=== PATIENT | female | born 1940 | race Asian ===

== ENCOUNTER 2023-05-02 11:06 | Emergency (ER) | payer OTHER ==
[~2023-05-02] VITALS: Ht 152.4 cm; Wt 54.5 kg
[2023-05-02 11:54] VITALS: BP 159/82; PULSE 83; RESP 16; TEMP 97.8; O2SAT 96
== END 2023-05-02 12:06 | disposition home or self-care (01) ==
LOC: ER 11:06
DX: H11.32 Conjunctival hemorrhage, left eye (principal); I10 Essential (primary) hypertension

== ENCOUNTER → 2023-06-18 | Outpatient (CLI) | payer OTHER | END | disposition home or self-care (01) | LOC: XYW 08:42 | PROVIDERS: ATTEND Nurse Practitioner Family | DX: I35.1 Nonrheumatic aortic (valve) insufficiency (principal); R07.89 Other chest pain; R42 Dizziness and giddiness; I51.7 Cardiomegaly | CPT/HCPCS: 93306 ==

== ENCOUNTER → 2023-09-13 | Outpatient (CLI) | payer OTHER | END | disposition home or self-care (01) | LOC: LAB 13:55 | PROVIDERS: ATTEND Nurse Practitioner Family | DX: Z12.11 Encounter for screening for malignant neoplasm of colon (principal); K92.1 Melena | CPT/HCPCS: 82270 ==

== ENCOUNTER → 2023-11-11 | Outpatient (CLI) | payer OTHER ==
[2023-11-11 09:11] LABS: Ferritin 167.7 ng/mL (10-291)
[2023-11-11 09:20] LABS: Free T4 (Free Thyroxine) 0.89 ng/dL (0.89-1.76)
[2023-11-11 10:26] LABS: Folate (Folic Acid) 17.14 ng/mL (>5.38)
[2023-11-11 11:49] LABS: % Iron Saturation 32.7 % (15-50)
[2023-11-13 07:07] LABS: Albumin 3.3 g/dL (2.9-4.4); Alpha-1-Globulin 0.3 g/dL (0.0-0.4); Gamma Globulin 1.6 g/dL (0.4-1.8); Globulin Total 3.9 g/dL (2.2-3.9); Protein Total Serum 7.2 g/dL (6.0-8.5)
== END | disposition home or self-care (01) ==
LOC: LAB 07:26
PROVIDERS: ATTEND Psychiatry & Neurology Neurology
DX: E61.1 Iron deficiency (principal); G62.2 Polyneuropathy due to other toxic agents
CPT/HCPCS: 36415; 82607; 82728; 82746; 82951; 83540; 83550; 84155; 84165; 84439; 84443

== ENCOUNTER 2023-12-04 07:08 | Day surgery (SDC) | payer OTHER ==
[2023-11-29 10:10] LABS: Basophils # (auto) 0 10 ^3/uL (0-0.2); Basophils % (auto) 0.6 % (0.0-2.0); Eosinophils # (auto) 0.1 10 ^3/uL (0-0.8); Eosinophils % (auto) 1.6 % (0.0-7.0); Hematocrit 46.4 % (36.0-46.0); Lymphocytes # (auto) 2.8 10 ^3/uL (0.4-5.4); Mean Corpuscular Hemoglobin 32.2 pg (28.0-32.0); Mean Corpuscular Hgb Conc. 34.5 g/dL (32.0-36.0); Mean Corpuscular Volume 93.2 fL (80.0-100.0); Monocytes # (auto) 0.6 10 ^3/uL (0-1.3); Monocytes % (auto) 9.8 % (0.0-12.0); Neutrophils # (auto) 2.7 10 ^3/uL (1.6-8.6); Nucleated Red Blood Cells % 0.1 %; Red Blood Cells 4.98 10^6/uL (4.0-5.20); Red Cell Distribution Width 12.8 % (11.8-14.3); White Blood Cell 6.2 10^3/uL (4.4-10.8)
[2023-11-29 10:25] LABS: INR 0.98 (0.9-1.15); Partial Thromboplastin Time 26.2 SEC (24.5-34.5); Prothrombin Time 10.4 sec (9.3-11.8)
[2023-11-29 10:49] LABS: Chloride 99 mmol/L (98-107); Potassium 3.3 mmol/L (3.5-5.1); Sodium 137 mmol/L (136-145)
[2023-11-29 10:50] LABS: Anion Gap 6 (5-15); Calcium 10.6 mg/dL (8.7-10.4); Carbon Dioxide 32 mmol/L (20-30)
[2023-11-29 10:52] LABS: Alkaline Phosphatase 56 U/L (46-116)
[2023-11-29 10:55] LABS: Blood Urea Nitrogen 9 mg/dL (9-23); Glucose 109 mg/dL (74-106)
[2023-11-29 10:57] LABS: Albumin 4.6 g/dL (3.2-4.8); Aspartate Aminotransferase 35 U/L (13-40); Bilirubin, Total 0.6 mg/dL (0.2-1.0); Total Protein 7.8 g/dL (5.7-8.2)
[2023-11-29 11:06] LABS: Alanine Aminotransferase 43 U/L (7-40)
[~2023-12-04] VITALS: Ht 152.4 cm; Wt 50.8 kg
[~2023-12-04 07:08] MED LIST: HYDR25TA5 PO; PRAM0.373 PO; RISE150T PO; ROSU20TA14 PO
[2023-12-04] MEDS ORDERED: diphenhdrAMINE HCL 50 MG/1 ML VL ONE (07:54)
[2023-12-04] MEDS ORDERED: SODIUM CHLORIDE LOCK 10 ML ONE (07:54)
[2023-12-04] MEDS ORDERED: FLUMAZENIL 0.1 MG/ML INJ 10ML MDV IV ONE (07:59)
[2023-12-04] MEDS ORDERED: NALOXONE HCL 0.4 MG/ML VIAL ONE (07:59)
[2023-12-04] MEDS ORDERED: SIMETHICONE 40 MG/0.6 ML ORAL DROP ONE (08:28)
[2023-12-04 08:33] VITALS: PULSE 76; RESP 14; O2SAT 99
[2023-12-04] MEDS: LIDOCAINE VISCOUS 2% 15ML UD ONE (08:35)
[2023-12-04] MEDS: fentaNYL CITRATE 100 MCG/2 ML VL ONE (08:37)
[2023-12-04] MEDS: MIDAZOLAM HCL 5 MG/ML-1ML VIAL ONE (08:37)
[2023-12-04 09:06] VITALS: PULSE 68; RESP 15; TEMP 98.2; O2SAT 95
[2023-12-04 09:30] VITALS: BP 118/66; PULSE 74; RESP 19; O2SAT 96
== END 2023-12-04 09:05 | disposition home or self-care (01) ==
LOC: GI 07:08
PROVIDERS: ATTEND Internal Medicine Gastroenterology
DX: R10.9 Unspecified abdominal pain (principal); K29.50 Unspecified chronic gastritis without bleeding; K44.9 Diaphragmatic hernia without obstruction or gangrene; K20.90 Esophagitis, unspecified without bleeding; F17.210 Nicotine dependence, cigarettes, uncomplicated; Z98.890 Other specified postprocedural states
CPT/HCPCS: 36415; 43239; 80053; 85025; 85610; 85730; 88305; 88312; 88342; J2250; J3010; J7030; 99152; 99153

== ENCOUNTER 2024-05-02 17:43 | Inpatient (IN) | payer OTHER ==
[~2024-05-02] VITALS: Ht 152.4 cm; Wt 59.9 kg
--- NOTE | 2024-05-02 19:22 | DVH ---
INDICATION: Trauma/fall COMPARISON: None TECHNIQUE: CT of the right was performed without contrast. Volume transverse images were obtained a nd reconstructed in multiple planes using bone and soft tissue algorithms. CONTRAST: None Radiation Dose Information: CT Dose: CTDI volume is 7.77 mGy. Dose-length product is 376.55 mGy*cm FINDINGS: The joint spaces are normal. Displaced fracture of the femoral neck. The soft tissues are normal. IMPRESSION: Displaced fracture of the femoral neck. Fracture is not subcapital or intertrochanteric but located i n the mid femoral neck. HS:Y
[2024-05-02 19:24] VITALS: PULSE 88; RESP 19; O2SAT 91
--- NOTE | 2024-05-02 19:51 | ED.PDOC ---
Musculoskeletal HPI Comments This patient is a pleasant 83-year-old female who arrives to the ED today with her due to complaints of severe left hip pain status post ground level fall earlier today. Patient was in her house when she slipped on a rug and landed on the tile floor. Patient describes the pain as severe. Patient is unable to move of the leg. No inversion of the leg appreciated as the patient was in a wheelchair at time of evaluation. No blood loss. Patient is not sure if she struck her head. No signs of cranial trauma. Chief Complaint: Fall Injury Time Seen by MD: 17:49 Primary Care Provider: DONTE MOURA Reviewed Notes: Nurses Notes Allergies: Coded Allergies: NO KNOWN ALLERGIES (Unverified , 07/29/23) Home Meds Reported Medications Risedronate Sodium (Actonel) 150 Mg Tab, 150 MG PO qmonthly, TAB 12/02/23 Hctz (Hydrochlorothiazide) 25 Mg Tab, 25 MG PO DAILY, TAB 12/02/23 Rosuvastatin Calcium (Crestor) 20 Mg Tab, 20 MG PO DAILY, TAB 12/02/23 Pramipexole Dihydrochloride (Pramipexole Dihydrochlori) 0.375 Mg Tab, 0.125 MG PO DAILY, TAB 12/02/23 Information Source: Patient, Spouse Mode of Arrival: Wheelchair Location: Left Extremity Location: Hip Timing: Hours Prehospital treatment: None Severity: Severe Able to Move Extremity: No Bear Weight: No Pain: Severe Hand Dominance: Right Mechanism: Blunt Trauma Circumstances: Fall Onset of Symptoms: After Trauma Symptoms: Swelling, Pain DVT Risk Factors: NONE Past Medical History PAST MEDICAL HISTORY: HTN Surgical History: Denies all surgeries FUSION JUNCTURE GRINDER History: No Pertinent FUSION JUNCTURE GRINDER History Family History Family History: Unknown Social History Smoker: Non-Smoker Alcohol: Denies ETOH Use Drugs: Denies Drug Use Lives In: Home Constitutional: denies: chills, diaphoresis, fatigue, fever, malaise, sweats, weakness, others EENTM: denies: blurred vision, double vision, ear bleeding, ear discharge, ear drainage, ear pain, ear ringing, eye pain, eye redness, hearing loss, mouth pain, mouth swelling, nasal discharge, nose bleeding, nose congestion, nose pain, photophobia, tearing, throat pain, throat swelling, voice changes, others Respiratory: denies: cough, hemoptysis, orthopnea, SOB at rest, shortness of breath, SOB with excertion, stridor, wheezing, others Cardiovascular: denies: chest pain, dizzy spells, diaphoresis, Dyspnea on exertion, edema, irregular heart beat, left arm pain, lightheadedness, palpitations, PND, syncope, others Gastrointestinal: denies: abdomen distended, abdominal pain, blood streaked bowels, constipated, diarrhea, dysphagia, difficulty swallowing, hematemesis, melena, nausea, poor appetite, poor fluid intake, rectal bleeding, rectal pain, vomiting, others Genitourinary: denies: abnormal vagina bleeding, burning, dyspareunia, dysuria, flank pain, frequency, hematuria, incontinence, pain, , vagina discharge, urgency, others Neurological: denies: dizziness, fainting, headache, left sided numbness, left sided weakness, numbness, paresthesia, pre-existing deficit, right sided numbness, right sided weakness, seizure, speech problems, tingling, tremors, weakness, others Musculoskeletal: reports: others (Left hip pain); denies: back pain, gout, joint pain, joint swelling, muscle pain, muscle stiffness, neck pain Integumetry: denies: bruises, change in color, change in hair/nails, dryness, laceration, lesions, lumps, rash, wounds, others Allergic/Immunocompromised: denies: Difficulty Healing, Frequent Infections, Hives, Itching, others Hematologic/Lymphatic: denies: anemia, blood clots, easy bleeding, easy bruising, swollen glands, others Endocrine: denies: excessive hunger, excessive sweating, excessive thirst, excessive urination, flushing, intolerance to cold, intolerance to heat, unexplained weight gain, unexplained weight loss, others Psychiatric: denies: anxiety, bipolar disorder, depression, hopeless, panic disorder, schizophrenia, sleepless, suicidal, others Physical Exam General Appearance: Normal, Severe Distress (Severe distress due to left hip pain concerns.) HEENT: Normal ENT Inspection, Pharynx Normal, TMs Normal Neck: Full Range of Motion, Non-Tender, Normal, Normal Inspection Respiratory: Chest Non-Tender, Lungs Clear, No Accessory Muscle Use, No Respiratory Distress, Normal Breath Sounds Cardiovascular: No Edema, No JVD, No Murmur, No Gallop, Normal Peripheral Pulses, Regular Rate/Rhythm Breast Exam: Deferred Gastrointestinal: No Organomegaly, Non Tender, No Pulsatile Mass, Normal Bowel Sounds, Soft Genitalia: Deferred Pelvic: Deferred Rectal: Deferred Extremities: Other (Diffuse tenderness to palpation throughout the left hip and proximal femoral area. Difficult to assess as the patient was in severe pain. Significant reduced range of motion. Distal neurovascularly intact.) Neurologic: Alert, warehouse distribution manager II-XII nml as Tested, No Motor Deficits, Normal Affect, Normal Mood, No Sensory Deficits Cerebellar Function: Normal Reflexes: Normal Skin: Dry, Normal Color, Warm Lymphatic: No Adenopathy Was a procedure done? Was a procedure done?: No Differential Diagnosis EXT Differential Diagnosis: Fracture, Sprain, Dislocation, Contusion X-Ray, Labs, Meds, VS Vital Signs Date Time Temp Pulse Resp B/P (MAP) Pulse Ox O2 Delivery O2 Flow Rate FiO2 05/02/24 19:24 88 19 91 Room Air* 0 21 05/02/24 19:23 88 16 140/84 (102) 91 05/02/24 18:19 98.8 92 16 114/79 (91) 95 X-Ray, Labs, Meds, VS Comment All studies performed the ED were evaluated by me personally. CT of the left hip and femur revealed a displaced fracture of the femoral neck fracture was not subcapital or intra trochanter but located in the mid femoral neck. Patient will be admitted for orthopedic evaluation and pain management. Time of 1ST Reevaluation: 19:50 Reevaluation 1ST: Improved Consultation: PCP, Surgery Patient Education/Counseling: Diagnosis, Treatment Family Education/Counseling: Diagnosis, Treatment Departure 1 Departure Time of Disposition: 19:50 Impression: Primary Impression: Left displaced femoral neck fracture Disposition: 09 ADMITTED INPATIENT Condition: Fair Discharged With: Self, Spouse Critical Care Note Critical Care Time?: No Stability Stability form required: No Heart Score Heart Score: Heart Score Response (Comments) Value History N/A 0 EKG N/A 0 Age N/A 0 Risk Factors N/A 0 Troponin N/A 0 Total 0 IVAN NGUYỄN PAC May 02, 2024 19:51
[2024-05-02] MEDS: HYDROcodone-ACET 10/325MG TAB PO ONE (19:55)
[2024-05-02] MEDS: SODIUM CHLORIDE 0.9% 1,000 ML IV SCH (20:15)
[2024-05-02] MEDS: ONDANSETRON HCL 4 MG/2 ML VIAL IV PRN (20:49)
[2024-05-02] MEDS: HYDROcodone-ACET 5/325MG TAB PO PRN (21:12)
[2024-05-02 21:14] LABS: Basophils # (auto) 0 10 ^3/uL (0-0.2); Basophils % (auto) 0.4 % (0.0-2.0); Eosinophils # (auto) 0 10 ^3/uL (0-0.8); Eosinophils % (auto) 0.4 % (0.0-7.0); Hematocrit 45.1 % (36.0-46.0); Hemoglobin 15.5 g/dL (12.2-16.2); Lymphocytes # (auto) 1.8 10 ^3/uL (0.4-5.4); Mean Corpuscular Hemoglobin 32.2 pg (28.0-32.0); Mean Corpuscular Hgb Conc. 34.4 g/dL (32.0-36.0); Mean Corpuscular Volume 93.5 fL (80.0-100.0); Monocytes # (auto) 0.5 10 ^3/uL (0-1.3); Monocytes % (auto) 4.9 % (0.0-12.0); Neutrophils # (auto) 7.1 10 ^3/uL (1.6-8.6); Neutrophils % (auto) 75.3 % (37.0-80.0); Platelet Count (auto) 314 10^3/uL (140-450); Red Blood Cells 4.82 10^6/uL (4.0-5.20); White Blood Cell 9.4 10^3/uL (4.4-10.8)
[2024-05-02 22:02] LABS: Alkaline Phosphatase 63 U/L (46-116); Anion Gap 7 (5-15); BUN/Creatinine Ratio 13.2 (10.0-20.0); Blood Urea Nitrogen 9 mg/dL (9-23); Calcium 9.7 mg/dL (8.7-10.4); Carbon Dioxide 29 mmol/L (20-31); Chloride 100 mmol/L (98-107); Sodium 136 mmol/L (136-145)
[2024-05-02 22:03] LABS: Alanine Aminotransferase 53 U/L (7-40); Albumin 4.2 g/dL (3.2-4.8); Aspartate Aminotransferase 43 U/L (13-40); Bilirubin, Total 0.5 mg/dL (0.2-1.0); Glucose 120 mg/dL (74-106); Potassium 3.4 mmol/L (3.5-5.1); Total Protein 7.3 g/dL (5.7-8.2)
[2024-05-02 22:06] LABS: Partial Thromboplastin Time 26.9 SEC (24.5-34.5); Prothrombin Time 10.6 sec (9.3-11.8)
--- NOTE | 2024-05-02 22:34 | DVHHP2 ---
History of Present Illness Reason for Visit: Left displaced femoral neck fracture History of Present Illness The patient is 83 years old female past medical history of hypertension and hyperlipidemia who presented to [facility] ED for evaluation of fall injury. Patient reports she tripped and fall landing left hip on the tile floor with sustained injury with sustained injury. Patient developed left hip pain, unable to move right leg, rating 8/10 numeric scale, described as severe, getting worse that prompted this visit. Patient was seen and evaluated in the ED, laboratory data shows WBC 9.4, platelets 314, sodium 136, potassium 3.4, BUN 9, creatinine 0.68, GFR 87, glucose 120, AST 43, ALT 53, blood pressure 140/84, heart rate 88, temperature 98.8 F, O2 saturation 92% on oxygen. Left hip CT revealing displaced fracture of the femoral neck. Patient was given Marianna 10/325 p.o. x1, please see medication orders section in the computer. On my assessment, patient denied chest pain, no headache, no dizziness, no loss of consciousness, no shortness of breath, no nausea, no vomiting, no fever, no chills. Patient was admitted for further evaluation and medical management. Past Medical History HTN, hyperlipidemia Past Surgical History Denies all surgeries Family History Reviewed, noncontributory to the management of this case. Past Social History The patient lives at home, denies smoking, alcohol or illicit drugs abuse. Review of Systems Constitutional: Yes: Weakness; No: Fever, Chills, Sweats, Malaise, Other Eyes: No: Pain, Vision change, Conjunctivae inflammation, Eyelid inflammation, Other, Redness ENT: No: Ear pain, Ear discharge, Nose pain, Nose discharge, Nose congestion, Mouth pain, Mouth swelling, Throat pain, Throat swelling, Other Respiratory: No: Cough, Dry, Shortness of breath, SOB with excertion, Wheezing, Hemoptysis, Pleuritic Pain, Sputum, Wheezing, Other Cardiovascular: No: Chest Pain, Palpitations, Orthopnea, Paroxysmal Noc. Dyspnea, Edema, Lt Headedness, Other Gastrointestinal: No: Nausea, Vomiting, Abdominal Pain, Diarrhea, Constipation, Melena, Hematochezia, Other Genitourinary: No Dysuria, No Frequency, No Incontinence, No Hematuria, No Retention, No Other Musculoskeletal: other (Left hip pain.), leg pain Skin: No: Rash, Lesions, Jaundice, Bruising, Other Neurological: No: Weakness, Numbness, Incoordination, Change in speech, Confusion, Seizures, Other Allergies: Coded Allergies: NO KNOWN ALLERGIES (Unverified , 07/29/23) Medications Current Medications Medications Dose Ordered Sig/Radha Route Start Time Stop Time Status Last Admin Dose Admin Sodium Chloride 1,000 ml @ 60 mls/hr [id number] IV 05/02/24 20:15 05/02/24 20:15 60 MLS/HR Acetaminophen/ Hydrocodone Bitart 1 tab Q4HP PRN PO 05/02/24 20:15 05/02/24 21:12 1 TAB Ondansetron HCl 4 mg Q4HP PRN IV 05/02/24 20:15 05/02/24 20:49 4 MG Docusate Sodium 100 mg BIDPRN PRN PO 05/02/24 20:15 Enoxaparin Sodium 40 mg DAILY SC 05/03/24 10:00 UNV Acetaminophen 650 mg Q6HP PRN PO 05/02/24 20:15 Exam Vital Signs Vital Signs Date Time Temp Pulse Resp B/P (MAP) Pulse Ox O2 Delivery O2 Flow Rate FiO2 05/02/24 20:00 92 05/02/24 19:24 19 91 Room Air* 0 21 05/02/24 19:23 140/84 (102) 05/02/24 18:19 98.8 General Appearance: Alert, Oriented X3, Cooperative, No acute distress HEENT: Atraumatic, PERRLA, EOMI, Mucous membr. moist/pink Respiratory: Clear to auscultation, Normal air movement Cardiovascular: Regular rate, Normal S1, Normal S2, No murmurs Abdominal: Normal bowel sounds, Soft, No tenderness, No hepatospenomegaly, No masses Extremities: No clubbing, No cyanosis, No edema, Normal pulses, Other (Right hip tenderness.) Skin: No rashes, No breakdown, No significant lesion Neuro: Normal speech, Normal tone, Sensation intact, Cranial nerves 3-12 NL, Reflexes 2+, Other (Generalized weakness) Psych/Mental Status: Mental status NL, Mood NL Labs/Xrays Labs Test 05/02/24 21:27 05/02/24 20:32 Range/Units Sodium Level 136 136-145 mmol/L Potassium Level 3.4 L 3.5-5.1 mmol/L Chloride Level 100 98-107 mmol/L Carbon Dioxide Level 29 20-31 mmol/L Anion Gap 7 5-15 Blood Urea Nitrogen 9 9-23 mg/dL Creatinine 0.68 0.550-1.02 mg/dL Glomerular Filtration Rate Calc 87 >90 mL/min BUN/Creatinine Ratio 13.2 10.0-20.0 Serum Glucose 120 H 74-106 mg/dL Calcium Level 9.7 8.7-10.4 mg/dL Total Bilirubin 0.5 0.2-1.0 mg/dL Aspartate Amino Transferase (AST) 43 H 13-40 U/L Alanine Aminotransferase (ALT) 53 H 7-40 U/L Alkaline Phosphatase 63 46-116 U/L Total Protein 7.3 5.7-8.2 g/dL Albumin 4.2 3.2-4.8 g/dL White Blood Count 9.4 4.4-10.8 10^3/uL Red Blood Count 4.82 4.0-5.20 10^6/uL Hemoglobin 15.5 12.2-16.2 g/dL Hematocrit 45.1 36.0-46.0 % Mean Corpuscular Volume 93.5 80.0-100.0 fL Mean Corpuscular Hemoglobin 32.2 H 28.0-32.0 pg Mean Corpuscular Hemoglobin Concent 34.4 32.0-36.0 g/dL Red Cell Distribution Width 13.0 11.8-14.3 % Platelet Count 314 140-450 10^3/uL Mean Platelet Volume 7.4 6.9-10.8 fL Neutrophils (%) (Auto) 75.3 37.0-80.0 % Lymphocytes (%) (Auto) 19.0 10.0-50.0 % Monocytes (%) (Auto) 4.9 0.0-12.0 % Eosinophils (%) (Auto) 0.4 0.0-7.0 % Basophils (%) (Auto) 0.4 0.0-2.0 % Neutrophils # (Auto) 7.1 1.6-8.6 10 ^3/uL Lymphocytes # (Auto) 1.8 0.4-5.4 10 ^3/uL Monocytes # (Auto) 0.5 0-1.3 10 ^3/uL Eosinophils # (Auto) 0 0-0.8 10 ^3/uL Basophils # (Auto) 0 0-0.2 10 ^3/uL Nucleated Red Blood Cells 0.0 % Prothrombin Time 10.6 9.3-11.8 sec Prothrombin Time INR 1.00 0.9-1.15 Activated Partial Thromboplast Time 26.9 24.5-34.5 SEC PATIENT: JOYCE SMITH ACCT: [id number] UNIT: [id number] : 1940 LOC: ER ROOM / BED: / AGE / SEX: 83 / F ADM STATUS: REG ER SERVICE 14 ORDERING PHYSICIAN: IVAN NGUYỄN PAC PROCEDURE(s): LFT - CT L FEMUR WO CONTRAST REASON: Trauma/fall ORDER NUMBER(s): [id number], ACCESSION NUMBER(s): [id number] INDICATION: Trauma/fall COMPARISON: None TECHNIQUE: CT of the right was performed without contrast. Volume transverse images were obtained and reconstructed in multiple planes using bone and soft tissue algorithms. CONTRAST: None Radiation Dose Information: CT Dose: CTDI volume is 7.77 mGy. Dose-length product is 376.55 mGy*cm FINDINGS: The joint spaces are normal. Displaced fracture of the femoral neck. The soft tissues are normal. IMPRESSION: Displaced fracture of the femoral neck. Fracture is not subcapital or intertrochanteric but located in the mid femoral neck. Assessment/Plan Assessment/Plan Left displaced femoral neck fracture Fall with injury Left hip pain Hypokalemia Urinary tract infection Generalized weakness Plan 1. Admit to telemetry unit 2. Breathing treatment 3. Pain control management 4. IV antibiotic management 5. Management of fluids and electrolytes 6. Consultation for orthopedic surgery 7. Diagnostic test left hip CT 8. DVT prophylaxis-on Lovenox 9. Repeat labs CBC, CMP in a.m. 10. Home medication reviewed and reconciled 11. Continue with current medical management 12. Treatment plan discussed with patient and RN. Patient verbalized understanding. Plan discussed with: Patient, Other (RN) My Orders Orders - DOMINIC FRAZIER DNP Procedure Category Date Status Time Allergies GÉNESIS 05/02/24 In Process 20:02 Code Status CODE 05/02/24 Transmitted 20:02 Sodium Chloride 0.9% PHA 05/02/24 In Process 20:15 Oxygen Per Hour RT 05/02/24 Transmitted 20:02 Hydrocodone-Acet PHA 05/02/24 In Process 5/325mg Tab (Marianna 20:15 Ondansetron Hcl PHA 05/02/24 In Process (Zofran) 20:15 Docusate Sodium PHA 05/02/24 In Process Capsule (Colace 20:15 Enoxaparin Sodium PHA 05/03/24 Pending (Lovenox) 10:00 Fall Risk Precautions GÉNESIS 05/02/[address] 20:02 Complete Blood Count LAB 05/03/24 Verified 04:00 Comprehensive LAB 05/03/24 Verified Metabolic Panel 04:00 Cardiac DIET 05/03/24 Transmitted Diet-2gna,Lofat,Lochol Breakfast Condition: Serious GÉNESIS 05/02/24 In Process 20:02 Acetaminophen Tablet PHA 05/02/24 In Process (Tylenol Tablet) 20:15 Sequential GÉNESIS 05/02/24 In Process Compression Device * Orthopedic Consult CONS 05/02/24 Transmitted 20:04 Problem List: (1) Left displaced femoral neck fracture (2) Fall with injury (3) Left hip pain (4) Hypokalemia (5) Urinary tract infection (6) Generalized weakness Date of Service: May 02, 2024 Billing Provider: DOMINIC FRAZIER DNP Common Visit Codes: [id number] INP/OBS CARE (HIGH) DOMINIC FRAZIER DNP May 02, 2024 22:34
[2024-05-02] MEDS: POTASSIUM CHL 20 Meq TABLET PO ONE (22:45)
[2024-05-02] MEDS ORDERED: NITROGLYCERIN 0.4 MG SL TAB SL PRN (22:45)
[2024-05-03 00:56] LABS: Urine Bacteria FEW /hpf (None Seen); Urine Blood 1+ /uL (Negative); Urine Clarity Clear (Clear); Urine Color Light-Yellow (Yellow); Urine Protein, UAD Negative (Negative); Urine Specific Gravity 1.007 (1.001-1.035); Urine Squamous Epithelial Cell None Seen /hpf (<5); Urine Urobilinogen Normal (Negative); Urine WBC 2 /hpf (0 - 5); Urine pH 6.5 (5.0-9.0)
[2024-05-03] MEDS: MORPHINE SULFATE INJ 2 MG/ml SYRG IV PRN ×2 (02:54→12:30)
[2024-05-03] MEDS: ACETAMINOPHEN 325 MG TAB PO PRN (05:06)
[2024-05-03 05:12] VITALS: PULSE 95; RESP 18; O2SAT 95
[2024-05-03 05:38] LABS: Basophils # (auto) 0 10 ^3/uL (0-0.2); Basophils % (auto) 0.4 % (0.0-2.0); Eosinophils # (auto) 0.1 10 ^3/uL (0-0.8); Eosinophils % (auto) 1.6 % (0.0-7.0); Lymphocytes # (auto) 1.7 10 ^3/uL (0.4-5.4); Lymphocytes % (auto) 19.1 % (10.0-50.0); Mean Corpuscular Hemoglobin 32.1 pg (28.0-32.0); Mean Corpuscular Hgb Conc. 34.3 g/dL (32.0-36.0); Mean Corpuscular Volume 93.5 fL (80.0-100.0); Monocytes # (auto) 0.5 10 ^3/uL (0-1.3); Monocytes % (auto) 5.8 % (0.0-12.0); Neutrophils # (auto) 6.7 10 ^3/uL (1.6-8.6); Neutrophils % (auto) 73.1 % (37.0-80.0); Platelet Count (auto) 253 10^3/uL (140-450); Red Blood Cells 4.38 10^6/uL (4.0-5.20); Red Cell Distribution Width 13.2 % (11.8-14.3); White Blood Cell 9.2 10^3/uL (4.4-10.8)
[2024-05-03 06:07] LABS: Alkaline Phosphatase 61 U/L (46-116); Anion Gap 5 (5-15); BUN/Creatinine Ratio 11.4 (10.0-20.0); Calcium 9.4 mg/dL (8.7-10.4); Chloride 99 mmol/L (98-107); Glucose 102 mg/dL (74-106); Potassium 3.7 mmol/L (3.5-5.1); Sodium 138 mmol/L (136-145)
[2024-05-03 06:08] LABS: Bilirubin, Total 0.7 mg/dL (0.2-1.0); Total Protein 6.8 g/dL (5.7-8.2)
[2024-05-03 06:27] LABS: Alanine Aminotransferase 45 U/L (7-40); Aspartate Aminotransferase 40 U/L (13-40); Blood Urea Nitrogen 8 mg/dL (9-23); Carbon Dioxide 34 mmol/L (20-31)
[2024-05-03 08:00] VITALS: PULSE 94; O2SAT 95
[2024-05-03] MEDS: cefTRIAXone 1GM/50ML D5W 50 ML IV ONE (09:23)
[2024-05-03] MEDS: ENOXAPARIN SOD 40 MG/0.4 ML SYRINGE SC SCH (10:45)
--- NOTE | 2024-05-03 13:50 | DVHPN2 ---
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 General Appearance: Alert, Oriented X3, Cooperative, mild distress HEENT: Atraumatic Lungs: Clear to auscultation, Normal air movement Cardiovascular: Regular rate, Normal S1, Normal S2 Abdomen: Normal bowel sounds, Soft, No tenderness Genitourinary: Other (Best's) Musculoskeletal: Other (Left hip/upper thigh swelling with tenderness; no bruise) Neuro: Normal speech, Cranial nerves 3-12 NL Psych/Mental Status: Mental status NL, Mood NL Medications Current Medications Medications Dose Ordered Sig/Radha Route Start Time Stop Time Status Last Admin Dose Admin Sodium Chloride 1,000 ml @ 60 mls/hr [id number] IV 05/02/24 20:15 05/03/24 12:29 60 MLS/HR Acetaminophen/ Hydrocodone Bitart 1 tab Q4HP PRN PO 05/02/24 20:15 05/03/24 09:23 1 TAB Ondansetron HCl 4 mg Q4HP PRN IV 05/02/24 20:15 05/03/24 02:59 4 MG Docusate Sodium 100 mg BIDPRN PRN PO 05/02/24 20:15 Enoxaparin Sodium 40 mg DAILY SC 05/03/24 10:00 05/03/24 10:45 40 MG Acetaminophen 650 mg Q6HP PRN PO 05/02/24 20:15 05/03/24 05:06 650 MG Nitroglycerin 0.4 mg Q5MINP PRN SL 05/02/24 22:45 Morphine Sulfate 2 mg Q30M PRN IV 05/02/24 22:45 05/03/24 04:54 2 MG Ceftriaxone Sodium 50 ml @ 100 mls/hr DAILY@09 IV 05/04/24 09:00 Morphine Sulfate 0.5 mg Q2HP PRN IV 05/03/24 10:00 05/03/24 12:30 0.5 MG Laboratory Results Laboratory Tests 05/03/24 04:38 Chemistry Test 05/02/24 21:27 05/03/24 04:38 Albumin 4.2 g/dL (3.2-4.8) 4.0 g/dL (3.2-4.8) Calcium Level 9.7 mg/dL (8.7-10.4) 9.4 mg/dL (8.7-10.4) Total Protein 7.3 g/dL (5.7-8.2) 6.8 g/dL (5.7-8.2) Coagulation Test 05/02/24 20:32 Prothrombin Time 10.6 sec (9.3-11.8) Prothrombin Time INR 1.00 (0.9-1.15) Activated Partial Thromboplast Time 26.9 SEC (24.5-34.5) LFT Test 05/02/24 21:27 05/03/24 04:38 Alanine Aminotransferase (ALT) 53 U/L (7-40) H 45 U/L (7-40) H Alkaline Phosphatase 63 U/L (46-116) 61 U/L (46-116) Aspartate Amino Transferase (AST) 43 U/L (13-40) H 40 U/L (13-40) Total Bilirubin 0.5 mg/dL (0.2-1.0) 0.7 mg/dL (0.2-1.0) Urinalysis Test 05/03/24 00:15 Urine Color Light-yellow (Yellow) Urine Clarity Clear (Clear) Urine pH 6.5 (5.0-9.0) Urine Specific [place] 1.007 (1.001-1.035) Urine Protein Negative (Negative) Urine Ketones Negative (Negative) Urine Blood 1+ /uL (Negative) H Urine Nitrite 1+ (Negative) H Urine Bilirubin Negative (Negative) Urine Urobilinogen Normal mg/dL (Negative) Urine Leukocyte Esterase Trace /uL (Negative) Urine RBC 2 /hpf (0 - 4) Urine WBC 2 /hpf (0 - 5) Urine Squamous Epithelial Cells None seen /hpf (<5) Urine Bacteria Few /hpf (None Seen) H Urine Glucose Normal mg/dL (Normal) Labs and/or images reviewed: Labs reviewed by me, Image(s) reviewed by me Assessment/Plan Assessment/Plan An 83-year-old female patient; with past medical history of essential hypertension and dyslipidemia; who presented to emergency department after a mechanical fall. #Left hip/upper thigh pain due to left displaced femoral neck fracture secondary to mechanical fall; fall precautions; reviewed the available imaging studies; continue pain management as indicated; Orthopedic Surgery consulted; Best's catheter for immobilization; on DVT prophylaxis; continue monitoring #Left displaced femoral fracture; details as above; continue monitoring #Mechanical fall; details as above; continue monitoring #Elevated LFTs; most likely due to fracture; avoid hepatotoxic agents; continue monitoring # UTI continue IV ceftriaxone; urine culture sent; continue monitoring #Hypokalemia; replaced; continue monitoring #Essential hypertension; monitor blood pressure and decide regarding antihypertensive medications; continue monitoring #Dyslipidemia; to resume statin when appropriate; continue monitoring Goals of care discussed with the patient and her family for 20 minutes; full code. Late Entry. This medical document was created using an electronic medical record system with computerized dictation system. Although this document has been carefully reviewed, there might still be some phonetic and typographical errors. These areas are purely typographical due to imperfections of the software programs, and do not reflect any compromise in the patient's medical care. Plan discussed with: Patient, Spouse, Son, Other (Nurse) My Orders Orders - MIRIAM PLEITEZ MD Procedure Category Date Status Time Morphine Sulfate PHA 05/03/24 In Process Injection 10:00 Date of Service: May 03, 2024 Billing Provider: MIRIAM PLEITEZ MD Common Visit Codes: [id number] INP/OBS CARE(HIGH) Secondary Visit Codes: [id number] CARE PLAN 30 MINUTES (20 minutes) MIRIAM PLEITEZ MD May 03, 2024 13:50
--- NOTE | 2024-05-03 17:01 | DVH ---
CHEST RADIOGRAPH Indication: CAD Technique: Single frontal view of the chest was obtained COMPARISON: None FINDINGS: Lines and Tubes: None Lungs: Subsegmental atelectasis in the left lower lobe. The right lung is clear. Pleura: No effusion. No pneumothorax. Cardiomediastinal contours: Mediastinal widening can be due to AP projection. Bones: Unremarkable IMPRESSION: 1. Subsegmental atelectasis in the left lower lobe.
[2024-05-03 20:00] VITALS: PULSE 102; RESP 17; O2SAT 95
[2024-05-03 22:11] VITALS: BP 124/69; PULSE 105; RESP 19; TEMP 98.8; O2SAT 92
[2024-05-03] MEDS ORDERED: OMEP1CAP70 PO (22:40)
[2024-05-04] VITALS (8 sets, daily range): BP systolic 83–136; BP diastolic 51–79; PULSE 90–111; RESP 14–18; TEMP 97.9–100.5; O2SAT 94–98
[2024-05-04 07:43] LABS: Alkaline Phosphatase 59 U/L (46-116); Anion Gap 8 (5-15); BUN/Creatinine Ratio 15.4 (10.0-20.0); Blood Urea Nitrogen 10 mg/dL (9-23); Calcium 8.8 mg/dL (8.7-10.4); Carbon Dioxide 27 mmol/L (20-31); Chloride 103 mmol/L (98-107); Potassium 3.7 mmol/L (3.5-5.1); Sodium 138 mmol/L (136-145)
[2024-05-04 07:45] LABS: Albumin 3.7 g/dL (3.2-4.8); Aspartate Aminotransferase 36 U/L (13-40); Bilirubin, Total 0.9 mg/dL (0.2-1.0); Total Protein 6.5 g/dL (5.7-8.2)
[2024-05-04 07:48] LABS: Glucose 104 mg/dL (74-106)
[2024-05-04 07:51] LABS: Alanine Aminotransferase 40 U/L (7-40)
[2024-05-04 08:00] LABS: Basophils # (auto) 0.1 10 ^3/uL (0-0.2); Basophils % (auto) 0.6 % (0.0-2.0); Eosinophils # (auto) 0.1 10 ^3/uL (0-0.8); Eosinophils % (auto) 0.8 % (0.0-7.0); Hematocrit 40.4 % (36.0-46.0); Hemoglobin 13.8 g/dL (12.2-16.2); Lymphocytes # (auto) 1.4 10 ^3/uL (0.4-5.4); Lymphocytes % (auto) 14.4 % (10.0-50.0); Mean Corpuscular Hgb Conc. 34.1 g/dL (32.0-36.0); Mean Corpuscular Volume 93.9 fL (80.0-100.0); Monocytes # (auto) 0.4 10 ^3/uL (0-1.3); Monocytes % (auto) 4.5 % (0.0-12.0); Neutrophils # (auto) 7.6 10 ^3/uL (1.6-8.6); Neutrophils % (auto) 79.7 % (37.0-80.0); Nucleated Red Blood Cells % 0.1 %; Platelet Count (auto) 236 10^3/uL (140-450); White Blood Cell 9.5 10^3/uL (4.4-10.8)
--- NOTE | 2024-05-04 08:20 | ECG ---
[facility] Test Date: 2024-05-04 Test Time: 03:47:12 Pat Name: JOYCE SMITH Department: Respiratoy Room: 0250T A Gender: F Cad Manager: Cassie : 1940 Requested By: DOMINIC FRAZIER Order Number: [id number] Reading MD: Nash Sinegr Measurements Intervals [place] Rate: 98 P: 44 MD: 227 QRS: 62 QRSD: 96 T: -21 QT: 343 QTc: 438 Interpretive Statements Sinus rhythm Prolonged MD interval Inferior infarct, age indeterminate Borderline ST elevation anterior-septal leads; correlate clinically Poor R wave progrssion precordial leads Electronically Signed On 05-04-2024 8:58:43 PST by Nash Singer Please click the below link to view image of tracing.
[2024-05-04] MEDS: cefTRIAXone 1GM/50ML D5W 50 ML IV SCH (09:02)
[2024-05-04] MEDS ORDERED: fentaNYL CITRATE 100 MCG/2 ML VL ONE (12:29)
[2024-05-04] MEDS ORDERED: LIDOCAINE 1% INJ PF 5ML AMP ONE (12:30)
[2024-05-04] MEDS: ceFAZolin 1GM/50ML 50 ML IV SCH (12:30)
[2024-05-04] MEDS ORDERED: MORPHINE SULF PF 5 MG/10 ML VIAL ONE (12:30)
[2024-05-04] MEDS ORDERED: MIDAZOLAM HCL 2MG/2ML 2ml VIAL (1mg/ml) ONE (12:30)
[2024-05-04] MEDS ORDERED: PROPOFOL 10 MG/ML 20 ML IV ONE (12:30)
[2024-05-04] MEDS ORDERED: ONDANSETRON HCL 4 MG/2 ML VIAL ONE (12:30)
[2024-05-04] MEDS ORDERED: KETAMINE 50mg/ML 1ml syringe ONE (12:41)
--- NOTE | 2024-05-04 13:17 | DVHINCON2 ---
Date of service: May 03, 2024 Reason for Consultation Left hip fracture History of Present Illness 83 yo F sp mechanical fall and landed onto left side. Patient had immediate pain/swelling/inability to bear weight on left leg. No cp/sob/abd pain/nausea/vomiting. Past Medical History HTN, hyperlipidemia Family History: Patient reports no known family medical history. Allergies: Coded Allergies: NO KNOWN ALLERGIES (Unverified , 07/29/23) Home Meds Reported Medications Omeprazole (Omeprazole Dr) 20 Mg Cap, 1 CAP PO DAILY 05/03/24 Risedronate Sodium (Actonel) 150 Mg Tab, 150 MG PO qmonthly, TAB 12/02/23 Hctz (Hydrochlorothiazide) 25 Mg Tab, 25 MG PO DAILY, TAB 12/02/23 Rosuvastatin Calcium (Crestor) 20 Mg Tab, 20 MG PO DAILY, TAB 12/02/23 Pramipexole Dihydrochloride (Pramipexole Dihydrochlori) 0.375 Mg Tab, 1 MG PO HS, TAB TAKE 2-3 HRS BEFORE BEDTIME. 12/02/23 Current Medications Current Medications Medications (Trade) Dose Ordered Sig/Radha Route PRN Reason Start Time Stop Time Status Last Admin Ceftriaxone Sodium 50 ml @ 100 mls/hr DAILY@09 IV 05/04/24 09:00 05/04/24 09:02 Review of Systems 10 point ROS is neg except per HPI Vital Signs Vital Signs Date Time Temp Pulse Resp B/P (MAP) Pulse Ox O2 Delivery O2 Flow Rate FiO2 05/04/24 12:51 100.5 105 15 106/67 (80) 94 100.5 05/04/24 08:00 Nasal Cannula* 2 28 Physical Exam NAD LLE: short ext/rotated +TA/GS/EHL/FHL foot wwp bedside Labs/Diagnostic Data Labs Test 05/04/24 07:00 05/03/24 21:57 05/03/24 00:15 05/02/24 20:32 Range/Units White Blood Count 9.5 4.4-10.8 10^3/uL Red Blood Count 4.30 4.0-5.20 10^6/uL Hemoglobin 13.8 12.2-16.2 g/dL Hematocrit 40.4 36.0-46.0 % Mean Corpuscular Volume 93.9 80.0-100.0 fL Mean Corpuscular Hemoglobin 32.0 28.0-32.0 pg Mean Corpuscular Hemoglobin Concent 34.1 32.0-36.0 g/dL Red Cell Distribution Width 13.0 11.8-14.3 % Platelet Count 236 140-450 10^3/uL Mean Platelet Volume 6.9 6.9-10.8 fL Neutrophils (%) (Auto) 79.7 37.0-80.0 % Lymphocytes (%) (Auto) 14.4 10.0-50.0 % Monocytes (%) (Auto) 4.5 0.0-12.0 % Eosinophils (%) (Auto) 0.8 0.0-7.0 % Basophils (%) (Auto) 0.6 0.0-2.0 % Neutrophils # (Auto) 7.6 1.6-8.6 10 ^3/uL Lymphocytes # (Auto) 1.4 0.4-5.4 10 ^3/uL Monocytes # (Auto) 0.4 0-1.3 10 ^3/uL Eosinophils # (Auto) 0.1 0-0.8 10 ^3/uL Basophils # (Auto) 0.1 0-0.2 10 ^3/uL Nucleated Red Blood Cells 0.1 % Sodium Level 138 136-145 mmol/L Potassium Level 3.7 3.5-5.1 mmol/L Chloride Level 103 98-107 mmol/L Carbon Dioxide Level 27 20-31 mmol/L Anion Gap 8 5-15 Blood Urea Nitrogen 10 9-23 mg/dL Creatinine 0.65 0.550-1.02 mg/dL Glomerular Filtration Rate Calc 88 >90 mL/min BUN/Creatinine Ratio 15.4 10.0-20.0 Serum Glucose 104 74-106 mg/dL Calcium Level 8.8 8.7-10.4 mg/dL Total Bilirubin 0.9 0.2-1.0 mg/dL Aspartate Amino Transferase (AST) 36 13-40 U/L Alanine Aminotransferase (ALT) 40 7-40 U/L Alkaline Phosphatase 59 46-116 U/L Total Protein 6.5 5.7-8.2 g/dL Albumin 3.7 3.2-4.8 g/dL Lactic Acid Level 0.8 0.4-2.0 mmol/L Urine Color Light-yellow Yellow Urine Clarity Clear Clear Urine pH 6.5 5.0-9.0 Urine Specific [place] 1.007 1.001-1.035 Urine Protein Negative Negative Urine Ketones Negative Negative Urine Blood 1+ H Negative /uL Urine Nitrite 1+ H Negative Urine Bilirubin Negative Negative Urine Urobilinogen Normal Negative mg/dL Urine Leukocyte Esterase Trace Negative /uL Urine RBC 2 0 - 4 /hpf Urine WBC 2 0 - 5 /hpf Urine Squamous Epithelial Cells None seen <5 /hpf Urine Bacteria Few H None Seen /hpf Urine Glucose Normal Normal mg/dL Prothrombin Time 10.6 9.3-11.8 sec Prothrombin Time INR 1.00 0.9-1.15 Activated Partial Thromboplast Time 26.9 24.5-34.5 SEC Microbiology Date/Time Source Procedure Growth Status 05/03/24 00:15 Voided Urine Urine Culture - Preliminary Resulted Plan/Recommendation 83 yo F sp fall with displaced left femoral neck fracture 1. I had a long and thorough discussion with patient regarding condition. Questions for patinet and family answered. Risks benefits options and alternatives reviewed in depth. Risks include but not exclusive to bleeding infection nerve injury hardware failure nonunion malunion chronic pain blood clots cardiac and pulmonary complications dislocation amputation and . Patient understands the risks and wishes to proceed with surgery. We discussed the nature of hip fractures in the elderly. 2. Plan for left hip hemiarthroplasty 3. NPO/IVF 4. pain control Plan discussed with: Patient TATY NORTON MD May 04, 2024 13:17
[2024-05-04] MEDS: KETOROLAC TROMETH 30 MG/ML 1ML VIAL ONE (13:35)
[2024-05-04] MEDS: ceFAZolin 1GM/50ML 100 ML IV ONE (13:35)
[2024-05-04] MEDS: BUPIVACAINE HCL 50 ML ONE (13:36)
[2024-05-04] MEDS: CEFEPIME 1GM/ 50ML 50 ML IV ONE (13:40)
[2024-05-04] MEDS: TRANEXAMIC ACID 20 ML ONE (13:44)
[2024-05-04] MEDS: VANCOMYCIN HCL 1000 MG VL ONE (13:55)
--- NOTE | 2024-05-04 15:43 | DVHPN2 ---
Subjective In the OR for Left Femoral Neck Surgery. Reviewed: Care Plan, H&P, Labs, Medications, Previous Orders, Radiology Changes from previous H/P or p: No Changes Musculoskeletal: leg pain Objective Vitals Vital Signs Date Time Temp Pulse Resp B/P (MAP) Pulse Ox O2 Delivery O2 Flow Rate FiO2 05/04/24 15:05 91 13 149/68 (95) 100 05/04/24 14:21 97.2 97.2 05/04/24 14:21 Mask 10.0 05/04/24 08:00 28 Intake/Output Intake and Output 05/04/24 07:00 Intake Total 640 ml Output Total 3800 ml Balance -3160 ml Intake Oral 0 ml IV Total 640 ml Output Urine Total 3800 ml General Appearance: Alert, Oriented X3, Cooperative, mild distress HEENT: Atraumatic Lungs: Clear to auscultation, Normal air movement Cardiovascular: Regular rate, Normal S1, Normal S2 Abdomen: Normal bowel sounds, Soft, No tenderness Genitourinary: Other (Best's) Musculoskeletal: Other (Left hip/upper thigh swelling with tenderness; no bruise) Neuro: Normal speech, Cranial nerves 3-12 NL Psych/Mental Status: Mental status NL, Mood NL Medications Current Medications Medications Dose Ordered Sig/Radha Route Start Time Stop Time Status Last Admin Dose Admin Sodium Chloride 1,000 ml @ 60 mls/hr [id number] IV 05/02/24 20:15 05/03/24 12:29 60 MLS/HR Acetaminophen/ Hydrocodone Bitart 1 tab Q4HP PRN PO 05/02/24 20:15 05/03/24 09:23 1 TAB Ondansetron HCl 4 mg Q4HP PRN IV 05/02/24 20:15 05/03/24 20:54 4 MG Docusate Sodium 100 mg BIDPRN PRN PO 05/02/24 20:15 Enoxaparin Sodium 40 mg DAILY SC 05/03/24 10:00 05/04/24 09:02 40 MG Acetaminophen 650 mg Q6HP PRN PO 05/02/24 20:15 05/04/24 11:43 650 MG Nitroglycerin 0.4 mg Q5MINP PRN SL 05/02/24 22:45 Morphine Sulfate 2 mg Q30M PRN IV 05/02/24 22:45 05/03/24 04:54 2 MG Morphine Sulfate 0.5 mg Q2HP PRN IV 05/03/24 10:00 05/04/24 11:30 0.5 MG Cefepime HCl 50 ml @ 12.5 mls/hr Q12HR IV 05/05/24 10:00 Cefazolin Sodium 50 ml @ 100 mls/hr Q8HR IV 05/04/24 14:00 05/05/24 06:29 Laboratory Results Laboratory Tests 05/04/24 07:00 Chemistry Test 05/04/24 07:00 Albumin 3.7 g/dL (3.2-4.8) Calcium Level 8.8 mg/dL (8.7-10.4) Total Protein 6.5 g/dL (5.7-8.2) LFT Test 05/04/24 07:00 Alanine Aminotransferase (ALT) 40 U/L (7-40) Alkaline Phosphatase 59 U/L (46-116) Aspartate Amino Transferase (AST) 36 U/L (13-40) Total Bilirubin 0.9 mg/dL (0.2-1.0) Urinalysis Test 05/03/24 00:15 Urine Color Light-yellow (Yellow) Urine Clarity Clear (Clear) Urine pH 6.5 (5.0-9.0) Urine Specific [place] 1.007 (1.001-1.035) Urine Protein Negative (Negative) Urine Ketones Negative (Negative) Urine Blood 1+ /uL (Negative) H Urine Nitrite 1+ (Negative) H Urine Bilirubin Negative (Negative) Urine Urobilinogen Normal mg/dL (Negative) Urine Leukocyte Esterase Trace /uL (Negative) Urine RBC 2 /hpf (0 - 4) Urine WBC 2 /hpf (0 - 5) Urine Squamous Epithelial Cells None seen /hpf (<5) Urine Bacteria Few /hpf (None Seen) H Urine Glucose Normal mg/dL (Normal) Microbiology Microbiology Date/Time Source Procedure Growth Status 05/03/24 00:15 Voided Urine Urine Culture - Preliminary Resulted Assessment/Plan Assessment/Plan #Left displaced femoral fracture; details as above; continue monitoring #Mechanical fall; details as above; continue monitoring #Elevated LFTs; most likely due to fracture; avoid hepatotoxic agents; continue monitoring # UTI continue IV ceftriaxone; urine culture sent; continue monitoring #Hypokalemia; replaced; continue monitoring #Essential hypertension; monitor blood pressure and decide regarding antihypertensive medications; continue monitoring #Dyslipidemia; to resume statin when appropriate; continue monitoring Plan discussed with: Other Date of Service: May 04, 2024 Billing Provider: ZHOU SANTANA MD Common Visit Codes: [id number] INP/OBS CARE(HIGH) ZHOU SANTANA MD May 04, 2024 15:43
[2024-05-04] MEDS: ERGOCALCIFEROL 50,000 UNIT(1.25MG) CAP PO SCH (17:51)
[2024-05-05] VITALS (8 sets, daily range): BP systolic 98–138; BP diastolic 53–75; PULSE 91–118; RESP 16–20; TEMP 98–103; O2SAT 95–97
[2024-05-05 07:43] LABS: Basophils # (auto) 0 10 ^3/uL (0-0.2); Basophils % (auto) 0.2 % (0.0-2.0); Eosinophils # (auto) 0.1 10 ^3/uL (0-0.8); Eosinophils % (auto) 0.6 % (0.0-7.0); Hematocrit 35.1 % (36.0-46.0); Hemoglobin 12.1 g/dL (12.2-16.2); Lymphocytes # (auto) 1.1 10 ^3/uL (0.4-5.4); Lymphocytes % (auto) 12.8 % (10.0-50.0); Mean Corpuscular Hemoglobin 32.2 pg (28.0-32.0); Mean Corpuscular Hgb Conc. 34.4 g/dL (32.0-36.0); Mean Corpuscular Volume 93.7 fL (80.0-100.0); Monocytes # (auto) 0.5 10 ^3/uL (0-1.3); Monocytes % (auto) 5.4 % (0.0-12.0); Platelet Count (auto) 191 10^3/uL (140-450); Red Blood Cells 3.74 10^6/uL (4.0-5.20); Red Cell Distribution Width 12.9 % (11.8-14.3); White Blood Cell 8.6 10^3/uL (4.4-10.8)
[2024-05-05 07:50] LABS: Chloride 100 mmol/L (98-107); Potassium 3.7 mmol/L (3.5-5.1)
[2024-05-05 07:55] LABS: Carbon Dioxide 26 mmol/L (20-31)
[2024-05-05 07:57] LABS: Calcium 8.2 mg/dL (8.7-10.4)
[2024-05-05 07:59] LABS: Alkaline Phosphatase 48 U/L (46-116); Anion Gap 9 (5-15); Sodium 135 mmol/L (136-145)
[2024-05-05] MEDS: TETRACAINE 1% INJ 2 ML VIAL IJ ONE (07:59)
[2024-05-05 08:00] LABS: BUN/Creatinine Ratio 15.9 (10.0-20.0); Blood Urea Nitrogen 10 mg/dL (9-23); Glucose 104 mg/dL (74-106)
[2024-05-05 08:01] LABS: Alanine Aminotransferase 35 U/L (7-40)
[2024-05-05 08:02] LABS: Albumin 3.3 g/dL (3.2-4.8); Bilirubin, Total 0.8 mg/dL (0.2-1.0)
[2024-05-05 08:08] LABS: Aspartate Aminotransferase 54 U/L (13-40); Total Protein 5.7 g/dL (5.7-8.2)
--- NOTE | 2024-05-05 08:12 | DVHPN2 ---
Progress Note Date Seen: May 05, 2024 Medical Necessity Reason Pt with a Central, PICC or Fol: Yes The following are medically ne: Best Catheter Objective vital signs Vital Sign Date Time Temp Pulse Resp B/P (MAP) Pulse Ox O2 Delivery O2 Flow Rate FiO2 05/05/24 08:10 103.0 05/05/24 05:00 118 17 128/59 (82) 95 05/04/24 20:00 Nasal Cannula* 2 28 Total Intake and Output 05/04/24 05/04/24 05/05/24 15:00 23:00 07:00 Intake Total 345 ml 1050 ml 300 ml Output Total 125 ml 600 ml Balance 345 ml 925 ml -300 ml medications Current Medications Medications Dose Ordered Sig/Radha Route Start Time Stop Time Status Last Admin Dose Admin Sodium Chloride 1,000 ml @ 60 mls/hr [id number] IV 05/02/24 20:15 05/04/24 17:17 60 MLS/HR Acetaminophen/ Hydrocodone Bitart 1 tab Q4HP PRN PO 05/02/24 20:15 05/03/24 09:23 1 TAB Ondansetron HCl 4 mg Q4HP PRN IV 05/02/24 20:15 05/03/24 20:54 4 MG Docusate Sodium 100 mg BIDPRN PRN PO 05/02/24 20:15 Enoxaparin Sodium 40 mg DAILY SC 05/03/24 10:00 05/04/24 09:02 40 MG Acetaminophen 650 mg Q6HP PRN PO 05/02/24 20:15 05/05/24 08:10 650 MG Nitroglycerin 0.4 mg Q5MINP PRN SL 05/02/24 22:45 Morphine Sulfate 2 mg Q30M PRN IV 05/02/24 22:45 05/03/24 04:54 2 MG Morphine Sulfate 0.5 mg Q2HP PRN IV 05/03/24 10:00 05/04/24 11:30 0.5 MG Cefepime HCl 50 ml @ 12.5 mls/hr Q12HR IV 05/05/24 10:00 Ergocalciferol 50,000 unit Q7D PO 05/04/24 17:15 05/04/24 17:51 50,000 UNIT Examination: GENERAL:Normal, MSK:Abnormal laboratory and microbiology Laboratory Tests 05/05/24 06:24 Test 05/05/24 06:24 Range/Units Serum Glucose 104 74-106 mg/dL Microbiology Date/Time Source Procedure Growth Status 05/03/24 00:15 Voided Urine Urine Culture - Preliminary Resulted Problem List/Assessment/Plan Problem List/Assessment/Plan 68 year old female who is s/p left hip reena POD 1 1. Pain control 2. WBAT LLE 3. Physical therapy 4. aquacel dressing to remain intact, no dressing changes needed 5. follow up 2 weeks at [facility] for postop appointment and staple removal 6. recommend DME for assistive devices as needed 7. clear for discharge from orthopedic standpoint Plan discussed with: Patient Date of Service: May 05, 2024 Billing Provider: TATY NORTON MD Common Visit Codes: NOT BILLABLE SCOT NOGUERA NP May 05, 2024 08:12
[2024-05-05] MEDS: CEFEPIME 1GM/ 50ML 50 ML IV SCH (09:05)
--- NOTE | 2024-05-05 17:45 | DVHPN2 ---
Subjective Seen and examined at bedside. Working with PT. Had 103F temperature, no WBC count elevation. Will get CXR. Reviewed: Care Plan, H&P, Labs, Medications, Previous Orders, Radiology Changes from previous H/P or p: No Changes Musculoskeletal: leg pain Objective Vitals Vital Signs Date Time Temp Pulse Resp B/P (MAP) Pulse Ox O2 Delivery O2 Flow Rate FiO2 05/05/24 16:38 98.9 104 17 122/53 (76) 97 98.9 05/05/24 08:00 Nasal Cannula* 2 28 Intake/Output Intake and Output 05/05/24 07:00 Intake Total 1695 ml Output Total 725 ml Balance 970 ml Intake Oral 590 ml IV Total 1105 ml Output Urine Total 725 ml General Appearance: Alert, Oriented X3, Cooperative HEENT: Atraumatic Lungs: Clear to auscultation, Normal air movement Cardiovascular: Regular rate, Normal S1, Normal S2 Abdomen: Normal bowel sounds, Soft, No tenderness Genitourinary: Other (Best's) Musculoskeletal: Other (Left hip/upper thigh swelling with tenderness; no bruise) Neuro: Normal speech, Cranial nerves 3-12 NL Psych/Mental Status: Mental status NL, Mood NL Medications Current Medications Medications Dose Ordered Sig/Radha Route Start Time Stop Time Status Last Admin Dose Admin Sodium Chloride 1,000 ml @ 60 mls/hr [id number] IV 05/02/24 20:15 05/05/24 13:54 60 MLS/HR Acetaminophen/ Hydrocodone Bitart 1 tab Q4HP PRN PO 05/02/24 20:15 05/03/24 09:23 1 TAB Ondansetron HCl 4 mg Q4HP PRN IV 05/02/24 20:15 05/03/24 20:54 4 MG Docusate Sodium 100 mg BIDPRN PRN PO 05/02/24 20:15 Enoxaparin Sodium 40 mg DAILY SC 05/03/24 10:00 05/05/24 09:05 40 MG Acetaminophen 650 mg Q6HP PRN PO 05/02/24 20:15 05/05/24 08:10 650 MG Nitroglycerin 0.4 mg Q5MINP PRN SL 05/02/24 22:45 Morphine Sulfate 2 mg Q30M PRN IV 05/02/24 22:45 05/03/24 04:54 2 MG Morphine Sulfate 0.5 mg Q2HP PRN IV 05/03/24 10:00 05/04/24 11:30 0.5 MG Cefepime HCl 50 ml @ 12.5 mls/hr Q12HR IV 05/05/24 10:00 05/05/24 09:05 12.5 MLS/HR Ergocalciferol 50,000 unit Q7D PO 05/04/24 17:15 05/04/24 17:51 50,000 UNIT Laboratory Results Laboratory Tests 05/05/24 06:24 Chemistry Test 05/05/24 06:24 Albumin 3.3 g/dL (3.2-4.8) Calcium Level 8.2 mg/dL (8.7-10.4) L Total Protein 5.7 g/dL (5.7-8.2) LFT Test 05/05/24 06:24 Alanine Aminotransferase (ALT) 35 U/L (7-40) Alkaline Phosphatase 48 U/L (46-116) Aspartate Amino Transferase (AST) 54 U/L (13-40) H Total Bilirubin 0.8 mg/dL (0.2-1.0) Urinalysis Test 05/03/24 00:15 Urine Color Light-yellow (Yellow) Urine Clarity Clear (Clear) Urine pH 6.5 (5.0-9.0) Urine Specific [place] 1.007 (1.001-1.035) Urine Protein Negative (Negative) Urine Ketones Negative (Negative) Urine Blood 1+ /uL (Negative) H Urine Nitrite 1+ (Negative) H Urine Bilirubin Negative (Negative) Urine Urobilinogen Normal mg/dL (Negative) Urine Leukocyte Esterase Trace /uL (Negative) Urine RBC 2 /hpf (0 - 4) Urine WBC 2 /hpf (0 - 5) Urine Squamous Epithelial Cells None seen /hpf (<5) Urine Bacteria Few /hpf (None Seen) H Urine Glucose Normal mg/dL (Normal) Microbiology Microbiology Date/Time Source Procedure Growth Status 05/03/24 00:15 Voided Urine Urine Culture - Final Escherichia coli Complete Assessment/Plan Assessment/Plan #Left displaced femoral fracture; details as above; continue monitoring #Mechanical fall; details as above; continue monitoring #Elevated LFTs; most likely due to fracture; avoid hepatotoxic agents; continue monitoring # UTI continue IV Cefepime, urine culture sent; continue monitoring #Hypokalemia; replaced; continue monitoring #Essential hypertension; monitor blood pressure and decide regarding antihypertensive medications; continue monitoring #Dyslipidemia; to resume statin when appropriate; continue monitoring Plan discussed with: Patient My Orders Orders - ZHOU SANTANA MD Procedure Category Date Status Time * 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
[2024-05-05] MEDS: DOCUSATE SOD 100 MG CAP PO PRN (20:20)
[2024-05-05 22:30] LABS: Rapid Influenza A Negative (Negative); Rapid Influenza B Negative (Negative)
[2024-05-05 22:31] LABS: COVID19 ANTIGEN SOFIA FIA NEGATIVE (NEGATIVE)
[2024-05-06] VITALS (9 sets, daily range): BP systolic 107–117; BP diastolic 40–69; PULSE 90–107; RESP 16–18; TEMP 97.8–101.1; O2SAT 91–96
[2024-05-06 06:04] LABS: Basophils # (auto) 0 10 ^3/uL (0-0.2); Basophils % (auto) 0.2 % (0.0-2.0); Eosinophils # (auto) 0 10 ^3/uL (0-0.8); Eosinophils % (auto) 0.3 % (0.0-7.0); Hematocrit 34.2 % (36.0-46.0); Hemoglobin 11.3 g/dL (12.2-16.2); Lymphocytes # (auto) 1.4 10 ^3/uL (0.4-5.4); Lymphocytes % (auto) 14.6 % (10.0-50.0); Mean Corpuscular Hemoglobin 31.3 pg (28.0-32.0); Mean Corpuscular Hgb Conc. 33.2 g/dL (32.0-36.0); Mean Corpuscular Volume 94.1 fL (80.0-100.0); Monocytes # (auto) 0.8 10 ^3/uL (0-1.3); Monocytes % (auto) 7.9 % (0.0-12.0); Neutrophils # (auto) 7.5 10 ^3/uL (1.6-8.6); Platelet Count (auto) 196 10^3/uL (140-450); Red Blood Cells 3.63 10^6/uL (4.0-5.20); White Blood Cell 9.8 10^3/uL (4.4-10.8)
--- NOTE | 2024-05-06 09:29 | DVH ---
CHEST RADIOGRAPH Indication: SOB Technique: Frontal and lateral view of the chest was obtained Comparison: None FINDINGS: Lines and Tubes: None Lungs: Mild congestion Pleura: No effusion. No pneumothorax. Cardiomediastinal contours: Unremarkable Bones: Unremarkable IMPRESSION: Mild congestion
--- NOTE | 2024-05-06 15:48 | DVHOP2 ---
Operative Report - 2 Report Details Date: 05/04/24 Preop Diagnosis: Displaced left femoral neck fracture Postop Diagnosis: Displaced left femoral neck fracture Surgeon: Micha Norton MD Objective C Developer: Mike KWOK Anesthesiologist: Shivam HILLMAN Anesthesia: Regional Implant: [employer] polaris stem bipolar Consent: The patient was informed of the risks and benefits of the procedure. These include but are not limited to complications of anesthesia, postoperative infection, incomplete relief of symptoms, recurrence of symptoms, damage to b lood vessels, nerves and tendons, deep venous thrombosis, pulmonary embolism and possible need for repeat surgery in the future. Estimated Blood Loss: 100 cc Name of Procedure Performed left hip hemiarthroplasty Procedure Details Procedure Details: INDICATION: I had a long discussion with the patient regarding the plan, the expected outcome, the risks, benefits, and alternatives of surgery. The risks include, but are not limited to, infection (which may require future surgery and removal of implants) , bleeding (which may require a transfusion), damage to ne rves, arteries, veins, tendons, muscles and other adjacent structures. Also discussed the possibilities of dislocation, leg-length discrepancy, intraoperative fractures, implant loosening, heterotopic bone formation, and revision for variety of reasons, and medical complications etc. This was discussed at length and consent has been obtained. DESCRIPTION OF PROCEDURE: In the preoperative holding area, the consent was reviewed and the appropriate extremity was verified by the patient and marked with my initials. The patient was then transferred to the operating theatre. Appropriate anesthetia was induced. All bony prominences were well padded. A time out was performed verifying the side and site of surgery according to standard protocol. Preoperative antibiotics were given. Tranexamic acid was given. The patient was then placed in the lateral decubitus position and fixed with rigid pelvic fixation. All bony prominences were well padded and an axillary roll was placed. The affected hip area was then prepped and draped in the usual sterile fashion. We made a standard posterolateral incision sharply through the skin and carried our dissection down through subcutaneous tissue to the underlying fascia achieving hemostasis where necessary. We incised the fascia in line with our incision. We identified and protected the sciatic nerve. We took down the external rotators and hip capsule from their insertion into the greater trochanter, tagged them and retracted them posteriorly for further protection of the sciatic nerve. We then dislocated the femoral head and performed an osteotomy of the femoral neck in accordance with our pre-operative plan. T Attention was then turned to the femur. We used a box osteotome followed by a canal finder to gain entry to the canal. Intramedullary contents were suctioned and care was taken to ensure they did not touch the tissues. We sequentially reamed until good cortical contact, then broached up to out final size. We trialed with the appropriate femoral neck and head and reduced the hip. The hip was taken through a full range of motion. The hip soft tissues were examined in extension and external rotation, the anterior capsule and IT band were palpated, and combined anteversion was determined to be 40 degrees. The hip was stable at maximum flexion, at 90 degrees of flexion and 45 degrees of internal rotation and the position of sleep. The hip was then dislocated and trial components removed. We copiously irrigated the wound and impacted the final femoral stem into position. The femoral head was impacted onto a clean and dry trunion and confirmed to be seated. The hip was reduced ensuring to tissues in the acetabular cup. We again brought it through a full functional range of motion and there was no evidence for dislocation, instability, or impingement. The checkpoint was removed. A dilute betadine solution (17.5mL in 500mL saline) was used to wash the joint and left to sit for 3 minutes. This was then irrigated out with copious amounts of pulse lavage. We sprinkled 1g vancomycin powder below the fascia and 1g above the fascia. We copiously irrigated the wound and soft tissues. The short external rotators and capsule were repaired to the greater trochanter through drill holes, and the quadratus was repaired. We palpated the sciatic nerve in continuity without tension. The fascia was closed with vicryl and a barbed suture. We closed over the fascia with vicryl suture and re-approximated the skin with hayley A sterile dressing was placed. We returned the patient to the supine position. We verified all lower extremity compartments were soft and compressible and that we had intact distal pulses and checked our leg length religion. The patient was then transferred to the recovery room in stable condition. Condition Good Disposition Still a Patient MICHA NORTON MD May 06, 2024 15:48
--- NOTE | 2024-05-06 16:15 | DVH ---
EXAM: XY PELVIS AP CLINICAL INDICATION: sp Left hip reena TECHNIQUE: XY PELVIS AP Comparison: None FINDINGS/IMPRESSION: There is no evidence of acute fracture or dislocation. Left hip arthroplasty The alignment is anatomical. There is no radiopaque foreign body.
--- NOTE | 2024-05-06 16:50 | DVHPN2 ---
Subjective Seen and examined at bedside. Still spiking temps. Get CT Chest. Add Doxy Reviewed: Care Plan, H&P, Labs, Medications, Previous Orders, Radiology Changes from previous H/P or p: No Changes Musculoskeletal: leg pain Objective Vitals Vital Signs Date Time Temp Pulse Resp B/P (MAP) Pulse Ox O2 Delivery O2 Flow Rate FiO2 05/06/24 15:55 100.5 05/06/24 12:38 98 16 111/69 (83) 96 05/06/24 07:52 Room Air* 0 21 Intake/Output Intake and Output 05/06/24 07:00 Intake Total 1350 ml Output Total 1425 ml Balance -75 ml Intake Oral 1250 ml IV Total 100 ml Output Urine Total 1425 ml General Appearance: Alert, Oriented X3, Cooperative HEENT: Atraumatic Lungs: Clear to auscultation, Normal air movement Cardiovascular: Regular rate, Normal S1, Normal S2 Abdomen: Normal bowel sounds, Soft, No tenderness Genitourinary: Other (Best's) Musculoskeletal: Other (Left hip/upper thigh swelling with tenderness; no bruise) Neuro: Normal speech, Cranial nerves 3-12 NL Psych/Mental Status: Mental status NL, Mood NL Medications Current Medications Medications Dose Ordered Sig/Radha Route Start Time Stop Time Status Last Admin Dose Admin Acetaminophen/ Hydrocodone Bitart 1 tab Q4HP PRN PO 05/02/24 20:15 05/03/24 09:23 1 TAB Ondansetron HCl 4 mg Q4HP PRN IV 05/02/24 20:15 05/03/24 20:54 4 MG Docusate Sodium 100 mg BIDPRN PRN PO 05/02/24 20:15 05/05/24 20:20 100 MG Enoxaparin Sodium 40 mg DAILY SC 05/03/24 10:00 05/06/24 09:52 40 MG Acetaminophen 650 mg Q6HP PRN PO 05/02/24 20:15 05/06/24 15:55 650 MG Nitroglycerin 0.4 mg Q5MINP PRN SL 05/02/24 22:45 Morphine Sulfate 2 mg Q30M PRN IV 05/02/24 22:45 05/06/24 09:52 2 MG Morphine Sulfate 0.5 mg Q2HP PRN IV 05/03/24 10:00 05/04/24 11:30 0.5 MG Cefepime HCl 50 ml @ 12.5 mls/hr Q12HR IV 05/05/24 10:00 05/06/24 09:51 12.5 MLS/HR Ergocalciferol 50,000 unit Q7D PO 05/04/24 17:15 05/04/24 17:51 50,000 UNIT Laboratory Results Laboratory Tests 05/05/24 06:24 05/06/24 04:56 Urinalysis Test 05/03/24 00:15 Urine Color Light-yellow (Yellow) Urine Clarity Clear (Clear) Urine pH 6.5 (5.0-9.0) Urine Specific [place] 1.007 (1.001-1.035) Urine Protein Negative (Negative) Urine Ketones Negative (Negative) Urine Blood 1+ /uL (Negative) H Urine Nitrite 1+ (Negative) H Urine Bilirubin Negative (Negative) Urine Urobilinogen Normal mg/dL (Negative) Urine Leukocyte Esterase Trace /uL (Negative) Urine RBC 2 /hpf (0 - 4) Urine WBC 2 /hpf (0 - 5) Urine Squamous Epithelial Cells None seen /hpf (<5) Urine Bacteria Few /hpf (None Seen) H Urine Glucose Normal mg/dL (Normal) Microbiology Microbiology Date/Time Source Procedure Growth Status 05/03/24 00:15 Voided Urine Urine Culture - Final Escherichia coli Complete Assessment/Plan Assessment/Plan #Left displaced femoral fracture; details as above; continue monitoring #Mechanical fall; details as above; continue monitoring #Elevated LFTs; most likely due to fracture; avoid hepatotoxic agents; continue monitoring # UTI continue IV Cefepime, urine culture sent; continue monitoring #Hypokalemia; replaced; continue monitoring #Essential hypertension; monitor blood pressure and decide regarding antihypertensive medications; continue monitoring #Dyslipidemia; to resume statin when appropriate; continue monitoring Plan discussed with: Patient My Orders Orders - ZHOU SANTANA MD Procedure Category Date Status Time Incentive Spirometry ORDERS 05/05/24 Transmitted Q 1hr 17:41 Chest Two Views XY 05/06/24 Resulted Routine 07:00 Date of Service: May 06, 2024 Billing Provider: ZHOU SANTANA MD Common Visit Codes: [id number] INP/OBS CARE(HIGH) ZHOU SANTANA MD May 06, 2024 16:50
--- NOTE | 2024-05-06 17:47 | DVH ---
Procedure: CT CHEST WITHOUT CONTRAST Study Date and Requested Time: 05/06/2024 05:08 PM History: Bronchopneumonia Comparison: Chest radiograph 05/06/2024 Dose: CTDI: 4.97 mGy DLP: Was 203.6 mGycm Technique: The thyroid gland is unremarkable Multiplanar images obtained through the chest without co ntour Findings: Thyroid gland is unremarkable. Borderline cardiomegaly. Mild dilatation of the ascending aorta up to 4.4 cm. Mild atherosclerotic ca lcification of the aorta. No significant lymphadenopathy. Trace bilateral pleural effusion. Biapical atelectasis. 4 mm right middle lobe solid nodule with 5 m m right lower lobe solid nodule. No pneumothorax. No focal consolidation. Small hiatal hernia. Mild gastric wall thickening. Moderate amount of fecal material within the colo n. Otherwise, partial view of the upper abdomen is unremarkable. Minimal soft tissue edema. Compression fracture of the superior endplate of L1 which appears chronic. Impression: Trace bilateral pleural effusions with associated atelectasis. Ectatic ascending aorta measuring up to 4.4 cm. 4 mm right middle lobe solid nodule with 5 mm right lower lobe solid nodule. Recommend follow-up per Fleischner criteria Small hiatal hernia. Mild gastric wall thickening. Correlate for gastritis.
[2024-05-06] MEDS: DOXYCYCLINE 100 MG TAB/CAP PO SCH (21:25)
[2024-05-07] VITALS (7 sets, daily range): BP systolic 108–127; BP diastolic 43–93; PULSE 94–103; RESP 16–18; TEMP 98.1–99.5; O2SAT 92–94
[2024-05-07 06:28] LABS: Chloride 99 mmol/L (98-107)
[2024-05-07 06:29] LABS: Anion Gap 6 (5-15); Carbon Dioxide 27 mmol/L (20-31)
[2024-05-07 06:32] LABS: Basophils # (auto) 0 10 ^3/uL (0-0.2); Basophils % (auto) 0.3 % (0.0-2.0); Eosinophils # (auto) 0 10 ^3/uL (0-0.8); Eosinophils % (auto) 0.3 % (0.0-7.0); Hematocrit 31.6 % (36.0-46.0); Hemoglobin 10.7 g/dL (12.2-16.2); Lymphocytes # (auto) 1.4 10 ^3/uL (0.4-5.4); Lymphocytes % (auto) 14.3 % (10.0-50.0); Mean Corpuscular Hemoglobin 31.8 pg (28.0-32.0); Mean Corpuscular Hgb Conc. 33.9 g/dL (32.0-36.0); Mean Corpuscular Volume 93.8 fL (80.0-100.0); Monocytes # (auto) 0.7 10 ^3/uL (0-1.3); Monocytes % (auto) 7.6 % (0.0-12.0); Neutrophils # (auto) 7.6 10 ^3/uL (1.6-8.6); Neutrophils % (auto) 77.5 % (37.0-80.0); Platelet Count (auto) 199 10^3/uL (140-450); Red Blood Cells 3.37 10^6/uL (4.0-5.20); White Blood Cell 9.8 10^3/uL (4.4-10.8)
[2024-05-07 06:34] LABS: BUN/Creatinine Ratio 15.4 (10.0-20.0)
[2024-05-07 06:35] LABS: Blood Urea Nitrogen 8 mg/dL (9-23); Calcium 8.5 mg/dL (8.7-10.4); Glucose 113 mg/dL (74-106); Potassium 3.3 mmol/L (3.5-5.1); Sodium 132 mmol/L (136-145)
[2024-05-07] MEDS: POTASSIUM CHL 20 Meq TABLET PO ONE (12:00)
[2024-05-07] MEDS ORDERED: DOX100T PO (16:04)
[2024-05-07] MEDS ORDERED: APIX2.5T PO (16:04)
[2024-05-07] MEDS ORDERED: ERGO1CAP23 PO (16:04)
[2024-05-07] MEDS ORDERED: TRAM-626 PO (16:04)
--- NOTE | 2024-05-07 16:10 | DVHDS2 ---
Discharge Summary Date of Admission May 02, 2024 at 22:32 Date of Discharge: May 07, 2024 Admitting Diagnosis Left displaced femoral fracture Labs/Diagnostic Data: Laboratory Results Test 05/07/24 05:05 05/05/24 21:50 05/05/24 06:24 05/04/24 07:00 White Blood Count 9.8 10^3/uL (4.4-10.8) Red Blood Count 3.37 10^6/uL (4.0-5.20) Hemoglobin 10.7 g/dL (12.2-16.2) Hematocrit 31.6 % (36.0-46.0) Mean Corpuscular Volume 93.8 fL (80.0-100.0) Mean Corpuscular Hemoglobin 31.8 pg (28.0-32.0) Mean Corpuscular Hemoglobin Concent 33.9 g/dL (32.0-36.0) Red Cell Distribution Width 13.0 % (11.8-14.3) Platelet Count 199 10^3/uL (140-450) Mean Platelet Volume 7.5 fL (6.9-10.8) Neutrophils (%) (Auto) 77.5 % (37.0-80.0) Lymphocytes (%) (Auto) 14.3 % (10.0-50.0) Monocytes (%) (Auto) 7.6 % (0.0-12.0) Eosinophils (%) (Auto) 0.3 % (0.0-7.0) Basophils (%) (Auto) 0.3 % (0.0-2.0) Neutrophils # (Auto) 7.6 10 ^3/uL (1.6-8.6) Lymphocytes # (Auto) 1.4 10 ^3/uL (0.4-5.4) Monocytes # (Auto) 0.7 10 ^3/uL (0-1.3) Eosinophils # (Auto) 0 10 ^3/uL (0-0.8) Basophils # (Auto) 0 10 ^3/uL (0-0.2) Nucleated Red Blood Cells 0.0 % Sodium Level 132 mmol/L (136-145) Potassium Level 3.3 mmol/L (3.5-5.1) Chloride Level 99 mmol/L (98-107) Carbon Dioxide Level 27 mmol/L (20-31) Anion Gap 6 (5-15) Blood Urea Nitrogen 8 mg/dL (9-23) Creatinine 0.52 mg/dL (0.550-1.02) Glomerular Filtration Rate Calc 93 mL/min (>90) BUN/Creatinine Ratio 15.4 (10.0-20.0) Serum Glucose 113 mg/dL (74-106) Calcium Level 8.5 mg/dL (8.7-10.4) Influenza Type A Antigen Negative (Negative) Influenza Type B Antigen Negative (Negative) SARS-CoV-2 Antigen (Rapid) Negative (NEGATIVE) Total Bilirubin 0.8 mg/dL (0.2-1.0) Aspartate Amino Transferase (AST) 54 U/L (13-40) Alanine Aminotransferase (ALT) 35 U/L (7-40) Alkaline Phosphatase 48 U/L (46-116) Total Protein 5.7 g/dL (5.7-8.2) Albumin 3.3 g/dL (3.2-4.8) Vitamin D 25-Hydroxy 19.6 ng/mL (30.0-100) Test 05/03/24 21:57 05/03/24 00:15 05/02/24 20:32 Lactic Acid Level 0.8 mmol/L (0.4-2.0) Urine Color Light-yellow (Yellow) Urine Clarity Clear (Clear) Urine pH 6.5 (5.0-9.0) Urine Specific [place] 1.007 (1.001-1.035) Urine Protein Negative (Negative) Urine Ketones Negative (Negative) Urine Blood 1+ /uL (Negative) Urine Nitrite 1+ (Negative) Urine Bilirubin Negative (Negative) Urine Urobilinogen Normal mg/dL (Negative) Urine Leukocyte Esterase Trace /uL (Negative) Urine RBC 2 /hpf (0 - 4) Urine WBC 2 /hpf (0 - 5) Urine Squamous Epithelial Cells None seen /hpf (<5) Urine Bacteria Few /hpf (None Seen) Urine Glucose Normal mg/dL (Normal) Prothrombin Time 10.6 sec (9.3-11.8) Prothrombin Time INR 1.00 (0.9-1.15) Activated Partial Thromboplast Time 26.9 SEC (24.5-34.5) Other Laboratory Tests 05/07/24 05:05 Brief Hx & Hospital Course: The patient is 83 years old female past medical history of hypertension and hyperlipidemia who presented to [facility] ED for evaluation of fall injury. Patient reports she tripped and fall landing left hip on the tile floor with sustained injury with sustained injury. Patient developed left hip pain, unable to move right leg, rating 8/10 numeric scale, described as severe, getting worse that prompted this visit. Patient was seen in Orthopedics consult, underwent surgery by Orthopedics. Patient had a temperature post op, possibly due to acute pneumonitis, started on Doxycycline. Patient encouraged to use Incentive Spirometer at home. Patient is now on room air. Will be discharged home with home health. Flu and COVID negative. Operations or Procedures Operative Report - 2 Report Details Date: 05/04/24 Preop Diagnosis: Displaced left femoral neck fracture Postop Diagnosis: Displaced left femoral neck fracture Surgeon: Micha Womack MD [employer] Inspector: Mike KWOK Anesthesiologist: Shivam HILLMAN Anesthesia: Regional Implant: [employer] polaris stem bipolar Consent: The patient was informed of the risks and benefits of the procedure. These include but are not limited to complications of anesthesia, postoperative infection, incomplete relief of symptoms, recurrence of symptoms, damage to blood vessels, nerves and tendons, deep venous thrombosis, pulmonary embolism and possible need for repeat surgery in the future. Estimated Blood Loss: 100 cc Name of Procedure Performed left hip hemiarthroplasty Procedure Details Procedure Details: INDICATION: I had a long discussion with the patient regarding the plan, the expected outcome, the risks, benefits, and alternatives of surgery. The risks include, but are not limited to, infection (which may require future surgery and removal of implants) , bleeding (which may require a transfusion), damage to nerves, arteries, veins, tendons, muscles and other adjacent structures. Also discussed the possibilities of dislocation, leg-length discrepancy, intraoperative fractures, implant loosening, heterotopic bone formation, and revision for variety of reasons, and medical complications etc. This was discussed at length and consent has been obtained. Condition at Discharge: Poor Final Diagnosis/Problems List #Left displaced femoral fracture; details as above; continue monitoring #Mechanical fall; details as above; continue monitoring #Elevated LFTs; most likely due to fracture; avoid hepatotoxic agents; continue monitoring # UTI # Acute Pneumonitis- Doxycycline #Hypokalemia; replaced; continue monitoring #Essential hypertension; monitor blood pressure and decide regarding antihypertensive medications; continue monitoring #Dyslipidemia; to resume statin when appropriate; continue monitoring Discharge Disposition: Home with Health Services Discharge Instruct/Medications Diet: Regular Activity: Light activity Follow Up/Referral: Ortho in 2 weeks PCP in 1 week Medications: See [facility] Discharge Statement: "Patient was advised to return to the ER or call 911 if any headaches, dizziness, shortness of breath, chest pain, abdominal pain, bleeding, fevers, or worsening of medical condition. Patient was counseled about treatment plan, medications, possible side effects, patientverbalized understanding. All questions were answered to the best of my ability. This discharge took greater then 30 minutes in planning, reviewing documentation, counseling the patient, and discussing with other team members." ASSESSMENT ASSESSMENT Assessment Displaced left femoral neck fracture Date of Service: May 07, 2024 Billing Provider: ZHOU SANTANA MD Common Visit Codes: 07505-EZG/OBS DISCH DAY >30min ZHOU SANTANA MD May 07, 2024 16:10
== END 2024-05-07 18:06 | disposition home health service (06) | DRG 522 ==
LOC: ER 17:43 → TELE 22:32 → TELE-EAST 05-03 22:04
PROVIDERS: ADMIT Internal Medicine; ATTEND Internal Medicine
PROC: 0SRS0JZ Replacement of Left Hip Joint, Femoral Surface with Synthetic Substitute, Open Approach (ICD-10-PCS; principal; 2024-05-04 12:57)
DX: S72.002A Fracture of unspecified part of neck of left femur, initial encounter for closed fracture (principal); N39.0 Urinary tract infection, site not specified; E87.6 Hypokalemia; E78.5 Hyperlipidemia, unspecified; I10 Essential (primary) hypertension; W01.0XXA Fall on same level from slipping, tripping and stumbling without subsequent striking against object, initial encounter; R79.89 Other specified abnormal findings of blood chemistry; Z20.822 Contact with and (suspected) exposure to COVID-19; Y93.89 Activity, other specified; Y92.89 Other specified places as the place of occurrence of the external cause; Y99.8 Other external cause status
CPT/HCPCS: 36415; 71045; 71046; 71250; 72170; 73700; 80048; 80053; 81001; 82306; 83605; 85025; 85610; 85730; 86850; 86900; 86901; 87040; 87086; 87088; 87186; 87426; 87804; 93005; 97110; 97116; 97163; 97530; G0378; J1885; J2250; J2405; J2704; J3490

== ENCOUNTER → 2024-06-08 | Outpatient (CLI) | payer OTHER ==
[~2024-06-08] MED LIST changes: +APIX2.5T PO; +DOX100T PO; +ERGO1CAP23 PO; +OMEP1CAP70 PO; +TRAM-626 PO
[2024-06-08 08:05] LABS: Basophils # (auto) 0.1 10 ^3/uL (0-0.2); Basophils % (auto) 1.1 % (0.0-2.0); Eosinophils # (auto) 0.2 10 ^3/uL (0-0.8); Eosinophils % (auto) 3.1 % (0.0-7.0); Hematocrit 44.3 % (36.0-46.0); Hemoglobin 14.7 g/dL (12.2-16.2); Lymphocytes # (auto) 2.4 10 ^3/uL (0.4-5.4); Lymphocytes % (auto) 41.4 % (10.0-50.0); Mean Corpuscular Hemoglobin 30.9 pg (28.0-32.0); Mean Corpuscular Hgb Conc. 33.1 g/dL (32.0-36.0); Mean Corpuscular Volume 93.4 fL (80.0-100.0); Monocytes # (auto) 0.4 10 ^3/uL (0-1.3); Neutrophils # (auto) 2.8 10 ^3/uL (1.6-8.6); Neutrophils % (auto) 47.4 % (37.0-80.0); Nucleated Red Blood Cells % 0.1 %; Platelet Count (auto) 396 10^3/uL (140-450); Red Blood Cells 4.75 10^6/uL (4.0-5.20); Red Cell Distribution Width 14.1 % (11.8-14.3); White Blood Cell 5.9 10^3/uL (4.4-10.8)
[2024-06-08 08:20] LABS: Alkaline Phosphatase 90 U/L (46-116); Anion Gap 9 (5-15); BUN/Creatinine Ratio 7.2 (10.0-20.0); LDL Cholesterol 43 mg/dL (< 100); Potassium 3.6 mmol/L (3.5-5.1)
[2024-06-08 08:21] LABS: Bilirubin, Total 0.5 mg/dL (0.2-1.0); Cholesterol 144 mg/dL (< 200); HDL Cholesterol 52 mg/dL (40-59); Total Protein 8.1 g/dL (5.7-8.2)
[2024-06-08 08:22] LABS: Alanine Aminotransferase 41 U/L (7-40); Albumin 4.9 g/dL (3.2-4.8); Blood Urea Nitrogen 6 mg/dL (9-23); Calcium 10.6 mg/dL (8.7-10.4); Carbon Dioxide 31 mmol/L (20-31); Chloride 95 mmol/L (98-107); Glucose 110 mg/dL (74-106); Sodium 135 mmol/L (136-145); Triglycerides 326 mg/dL (< 150)
[2024-06-08 08:24] LABS: Aspartate Aminotransferase 38 U/L (13-40)
== END | disposition home or self-care (01) ==
LOC: LAB 06:54
PROVIDERS: ATTEND Nurse Practitioner Family
DX: Z00.01 Encounter for general adult medical examination with abnormal findings (principal); E78.5 Hyperlipidemia, unspecified; M81.0 Age-related osteoporosis without current pathological fracture; G89.4 Chronic pain syndrome
CPT/HCPCS: 36415; 80053; 80061; 82306; 84443; 85025

== ENCOUNTER → 2024-07-16 | Outpatient (CLI) | payer OTHER ==
[2024-07-16 12:17] LABS: Basophils # (auto) 0 10 ^3/uL (0-0.2); Basophils % (auto) 0.5 % (0.0-2.0); Eosinophils # (auto) 0.1 10 ^3/uL (0-0.8); Hematocrit 44.5 % (36.0-46.0); Lymphocytes # (auto) 2.7 10 ^3/uL (0.4-5.4); Lymphocytes % (auto) 42.5 % (10.0-50.0); Mean Corpuscular Hemoglobin 31.4 pg (28.0-32.0); Mean Corpuscular Hgb Conc. 33.8 g/dL (32.0-36.0); Mean Corpuscular Volume 92.7 fL (80.0-100.0); Monocytes # (auto) 0.6 10 ^3/uL (0-1.3); Monocytes % (auto) 8.9 % (0.0-12.0); Neutrophils % (auto) 47.1 % (37.0-80.0); Nucleated Red Blood Cells % 0.1 %; Platelet Count (auto) 291 10^3/uL (140-450); Red Cell Distribution Width 13.8 % (11.8-14.3); White Blood Cell 6.3 10^3/uL (4.4-10.8)
[2024-07-16 12:21] LABS: INR 0.98 (0.9-1.15); Partial Thromboplastin Time 25.3 SEC (24.5-34.5); Prothrombin Time 10.4 sec (9.3-11.8)
[2024-07-16 12:45] LABS: Anion Gap 6 (5-15); Potassium 3.9 mmol/L (3.5-5.1); Sodium 138 mmol/L (136-145)
[2024-07-16 12:51] LABS: BUN/Creatinine Ratio 11.8 (10.0-20.0); Blood Urea Nitrogen 9 mg/dL (9-23); Calcium 10.6 mg/dL (8.7-10.4); Carbon Dioxide 34 mmol/L (20-31); Chloride 98 mmol/L (98-107); Glucose 117 mg/dL (74-106)
== END | disposition home or self-care (01) ==
LOC: LAB 11:42
PROVIDERS: ATTEND Internal Medicine
DX: Z01.812 Encounter for preprocedural laboratory examination (principal); H01.002 Unspecified blepharitis right lower eyelid
CPT/HCPCS: 36415; 80048; 85025; 85610; 85730

== ENCOUNTER 2025-02-20 08:31 | Day surgery (SDC) | payer OTHER ==
[2025-02-18 14:27] LABS: Hematocrit 45.9 % (36.0-46.0); Hemoglobin 15.3 g/dL (12.2-16.2); Mean Corpuscular Hemoglobin 30.9 pg (28.0-32.0); Mean Corpuscular Volume 92.6 fL (80.0-100.0); Nucleated Red Blood Cells % 0.1 %
[2025-02-18 14:34] LABS: INR 0.98 (0.9-1.15); Partial Thromboplastin Time 25.9 SEC (24.5-34.5); Prothrombin Time 10.4 sec (9.3-11.8)
[2025-02-18 14:44] LABS: Alanine Aminotransferase 55 U/L (7-40); Albumin 4.6 g/dL (3.2-4.8); Alkaline Phosphatase 67 U/L (46-116); Anion Gap 8 (5-15); BUN/Creatinine Ratio 15.0 (10.0-20.0); Bilirubin, Total 0.4 mg/dL (0.2-1.0); Blood Urea Nitrogen 12 mg/dL (9-23); Calcium 10.1 mg/dL (8.7-10.4); Carbon Dioxide 35 mmol/L (20-31); Chloride 96 mmol/L (98-107); Glucose 124 mg/dL (74-106); Potassium 3.3 mmol/L (3.5-5.1); Sodium 139 mmol/L (136-145); Total Protein 8.1 g/dL (5.7-8.2)
[~2025-02-20] VITALS: Ht 152.4 cm; Wt 49.0 kg
[~2025-02-20 08:31] MED LIST changes: -APIX2.5T PO; +CHOL25CH3 PO; +CYAN-17 PO; -DOX100T PO; +FERR-7 PO; -HYDR25TA5 PO; -RISE150T PO; -TRAM-626 PO; +[UNRECOGNIZED DRUG - CODE] PO; +[UNRECOGNIZED DRUG - CODE] PO
[2025-02-20] MEDS: fentaNYL CITRATE 100 MCG/2 ML VL ONE (12:01)
[2025-02-20] MEDS: MIDAZOLAM HCL 2MG/2ML 2ml VIAL (1mg/ml) ONE (12:01)
[2025-02-20 12:12] VITALS: PULSE 78; RESP 16; TEMP 98; O2SAT 98
--- NOTE | 2025-02-20 12:13 | DVHNC2 ---
Procedure - PROCEDURE DATE: 02/20/2025 PROCEDURE PERFORMED BY: Jitendra Sandoval MD REFERRING PROVIDER: Elieser Allen MD PROCEDURE PERFORMED: 1. Esophagogastroduodenoscopy with moderate sedation 2. Esophagogastroduodenoscopy with biopsy PRE-PROCEDURE DIAGNOSIS: 1. GERD POSTPROCEDURE DIAGNOSIS: 1. Mild erosive esophagitis 2. Mild erosive gastritis. INDICATIONS FOR PROCEDURE: THE PATIENT IS A 84 YEAR OLD FEMALE WHO PRESENTS FOR OUTPATIENT ENDOSCOPY FOR GERD MEDICATIONS USED: 3 mg of Versed IV and 25 mcg of fentanyl IV DETAILS OF THE PROCEDURE: Informed consent was obtained after risks benefits and alternatives were discussed at length with the patient. The patient gave consent to the procedure as well as the medication used for sedation. The patient was placed in left lateral decubitus position. An Olympus endoscope was inserted into the oropharynx advanced into the esophagus then into the stomach then into the duodenal bulb and duodenum. The duodenal bulb and duodenum were normal. The scope was then withdrawn. The stomach showed mild gastritis. Biopsies of the antrum and body were taken. Retroflexion showed no abnormalities. The scope was then withdrawn. The patient had mild erosive esophagitis with the Z-line at 37 cm. There was no strictures, hernia, mass, or diverticula seen. The patient tolerated the procedure well. IMPRESSION: Mild erosive esophagitis and mild erosive gastritis No explanation for the patient's symptoms of refractory GERD for bad taste in her mouth. It is possible that it is due to acid reflux that is not optimally treated RECOMMENDATIONS: 1. Anti-reflux precautions 2. Proton pump inhibitor and/or H2 nisa daily 3. Follow up with EGD format biopsy 4. Follow up with the primary care physician 5. Consider further workup as indicated. I WOULD LIKE TO THANK DR. ALLEN FOR THIS REFERRAL JITENDRA SANDOVAL MD Feb 20, 2025 12:13
[2025-02-20 12:22] VITALS: PULSE 77; RESP 15; O2SAT 98
[2025-02-20 13:20] VITALS: BP 146/75; PULSE 76; RESP 20; O2SAT 96
== END 2025-02-20 13:30 | disposition home or self-care (01) ==
LOC: GI 08:31
PROVIDERS: ATTEND Specialist
DX: K21.00 Gastro-esophageal reflux disease with esophagitis, without bleeding (principal); K29.50 Unspecified chronic gastritis without bleeding; I10 Essential (primary) hypertension; Z79.899 Other long term (current) drug therapy; Z98.890 Other specified postprocedural states
CPT/HCPCS: 36415; 43239; 80053; 85025; 85610; 85730; 88305; 88313; 88342; J2250; J3010

== ENCOUNTER 2025-03-15 09:59 | Outpatient (CLI) | payer OTHER ==
[2025-03-15 11:23] LABS: Albumin 4.4 g/dL (3.2-4.8); Alkaline Phosphatase 64 U/L (46-116); Anion Gap 9 (5-15); BUN/Creatinine Ratio 14.9 (10.0-20.0); Blood Urea Nitrogen 11 mg/dL (9-23); Calcium 9.8 mg/dL (8.7-10.4); Glucose 100 mg/dL (74-106); Potassium 3.7 mmol/L (3.5-5.1); Sodium 137 mmol/L (136-145); Total Protein 7.7 g/dL (5.7-8.2)
[2025-03-15 11:24] LABS: Bilirubin, Total 0.5 mg/dL (0.2-1.0)
[2025-03-15 11:26] LABS: Alanine Aminotransferase 53 U/L (7-40); Carbon Dioxide 32 mmol/L (20-31); Chloride 96 mmol/L (98-107)
== END 2025-03-15 17:00 | disposition home or self-care (01) ==
LOC: LAB 09:59
PROVIDERS: ATTEND Internal Medicine
DX: R91.8 Other nonspecific abnormal finding of lung field (principal); I71.21 Aneurysm of the ascending aorta, without rupture
CPT/HCPCS: 36415; 80053